=== PATIENT | female | born 1945 | race Caucasian/White ===

== ENCOUNTER 2017-02-01 09:26 | Observation (INO) | payer MEDICARE, OTHER ==
[2017-02-01 09:53] VITALS: BMI 40.8
[2017-02-01] MEDS ORDERED: Piperacillin/Tazobact 3.375 GM in Sodium Chloride 0.9% 100 ML IVPB STA (10:38)
[2017-02-01] MEDS ORDERED: Vancomycin 1 g Inj ONE (10:55)
[2017-02-01] MEDS ORDERED: Piperacillin/Tazobact 3.375 gm Inj IVPB ONE (10:59)
[2017-02-01 12:25] LABS: BASO # 0.1 K/uL (0.0-0.2); BASO % 0.9 % (0.0-2.0); EOS % 0.3 % (0.0-4.0); HEMOGLOBIN 10.9 g/dL (12.0-16.0); LYMPH % 10.8 % (20.0-40.0); MEAN CELL VOLUME 74.4 fl (81.0-99.0); MEAN CORPUSCULAR HEMOGLOBIN 22.5 pg (27.0-31.0); MEAN CORPUSCULAR HGB CONC 30.3 g/dL (33.0-37.0); MEAN PLATELET VOLUME 8.1 fl (7.2-11.7); MONO # 0.2 K/uL (0.0-0.8); MONO % 1.9 % (0.0-10.0); NEUT # 7.8 K/uL (1.8-7.0); NEUT % 86.1 % (50.0-75.0); RBC 4.82 Mil/uL (3.80-5.20); RED CELL DISTRIBUTION WIDTH 18.4 % (11.5-14.5)
[2017-02-01 12:26] LABS: VENOUS BLOOD GAS BASE EXCESS 4.2 mmol/L (0.0-2.0); VENOUS BLOOD GAS PCO2 55 mmHg (40-60); VENOUS BLOOD GAS PO2 29 mm/Hg (30-55); VENOUS BLOOD PH 7.36 (7.32-7.43)
--- NOTE | 2017-02-01 12:39 | US ---
PROCEDURE: Bilateral lower extremity venous duplex Doppler. HISTORY: BLE swelling COMPARISON: None available. TECHNIQUE: Bilateral common femoral, superficial femoral, popliteal and posterior tibial veins were evaluated. Flow was assessed with color Doppler, compressibility, assessment of phasic flow and augmentation response. FINDINGS: COMMON FEMORAL VEIN: Right CFV: Normal flow and spectral waveform. Left CFV: Normal flow and spectral waveform. SUPERFICIAL FEMORAL VEIN: Right SFV: Normal flow and spectral waveform. Left SFV: Normal flow and spectral waveform. POPLITEAL VEIN: Right Popliteal: Normal flow and spectral waveform. Left Popliteal: Normal flow and spectral waveform. POSTERIOR TIBIAL VEIN: Right PTV: Normal flow and spectral waveform. Left PTV: Normal flow and spectral waveform. OTHER FINDINGS: There is a complex cyst in the right popliteal fossa most compatible with a complex popliteal cyst. IMPRESSION: No evidence of deep venous thrombosis.
[2017-02-01 12:49] LABS: PARTIAL THROMBOPLASTIN TIME 45.2 Seconds (25.6-37.1); PROTHROMBIN TIME 36.3 Seconds (9.8-13.1)
--- NOTE | 2017-02-01 12:50 | CP.PCM.CON ---
<Zane Ferreira - Last Filed: 02/01/17 15:12> History of Present Illness - History of Present Illness History of Present Illness: 72 year old female with a PMH of HTN, fluid retention, asthma, and arthritis presents to the ED with worsening odor and drainage from her left wound. She states that she has had the ulceration for about 2 weeks. She was in the podiatry clinic last week, where silvadene was applied on the wound and UNNA boot applied to the lower left extremity. She is suppose to followup tomorrow. She states she did not have a learning operations specialist originally but saw a learning operations specialist for the first time last in podiatry clinic. She reports never having compression stockings. She states she has a PCP and saw him in November. She denies n/v/sob/cp/ chills or vomiting. PSH: b/l hip and knee replacement SH: denies smoking, drinking, or elicited drug use Allergies: fish -> rash Meds: see medication list FH: mother- of cancer, father heart disease Past Patient History - Past Medical History & Family History Past Medical History?: Yes - Past Social History Smoking Status: Never Smoked - CARDIAC Hx Hypertension: Yes - PULMONARY Hx Asthma: Yes Hx Pulmonary Embolism: Yes - MUSCULOSKELETAL/RHEUMATOLOGICAL Hx Arthritis: Yes - PSYCHIATRIC Hx Substance Use: No - SURGICAL HISTORY Hx Surgeries: Yes - ANESTHESIA Hx Anesthesia: Yes Meds Allergies/Adverse Reactions: Allergies Allergy/AdvReac Type Severity Reaction Status Date / Time FISH Allergy ITCHING Verified 02/01/17 09:53 iodine Allergy RASH Verified 02/01/17 09:54 Physical Exam - Constitutional Appears: Well, Non-toxic, No Acute Distress - Extremities Exam Additional comments: Vasc: DP amd PT 1/4 bilaterally, +2 pitting edema noted to bilaterally legs, temperature is warm to cool bilaterally, PEDIATRIC MEDICAL ASSISTANT <4 seconds Ortho: severe pain with palpation Neuro: gross sensation is diminished bilaterally Derm: anterior lateral ulceration of the left lower leg measures approximately 2.6 X 2 x.1, wound base is granular (40%) and fibrotic (60%) in nature and posterior lower leg ulceration measuring approximately 3 x 1x .1 with base 40% granular and 60% granular. Drainage is noted, clear yellow serous in color, no purulence, the wound is not hot, no increase temperature noted, periwound is erythematous, no tunneling, no undermining, no probe to bone, no malodor noted. - Neurological Exam Neurological exam: Alert, Oriented x3 - Psychiatric Exam Psychiatric exam: Normal Affect, Normal Mood Results - Labs Result Diagrams: 02/01/17 11:30 02/01/17 13:00 Labs: Laboratory Results - last 24 hr 02/01/17 02/01/17 11:30 12:20 WBC 9.0 RBC 4.82 Hgb 10.9 L Hct 35.9 MCV 74.4 L MCH 22.5 L MCHC 30.3 L RDW 18.4 H Plt Count 444 H D MPV 8.1 Neut % (Auto) 86.1 H Lymph % (Auto) 10.8 L [place] % (Auto) 1.9 Eos % (Auto) 0.3 Baso % (Auto) 0.9 Neut # 7.8 H Lymph # 1.0 [place] # 0.2 Eos # 0.0 Baso # 0.1 pO2 29 L VBG pH 7.36 VBG pCO2 55 VBG HCO3 27.0 VBG Total CO2 32.8 H VBG O2 Sat (Calc) 58.3 VBG Base Excess 4.2 H VBG Potassium 3.9 Sodium 138.0 Chloride 104.0 Glucose 155 H Lactate 3.0 H FiO2 21.0 Venous Blood Potassium 3.9 Assessment & Plan - Assessment and Plan (Free Text) Assessment: 72 year old female with a PMH of HTN, fluid retention, asthma, and arthritis presents to the ED with left lower extremity wounds secondary to lymphedema. Plan: Patient was examined and evaluated in the ED Chart, labs, and vitals reviewed (afebrile and WBC=9.0) Discussed the plan in detail with attending Dr. Salcido U/S-negative DVT Ulcerations does not appear clinically infected. Ulcerations were cleansed with saline solution. Silvadene and saline w2d dressing was applied. Compression dressing was applied using kerlix, cast padding, DARIUSZ, and Coban. Patient to followup in wound care clinic for wounds Patient to followup with PCP for management of fluid retention, lymphedema Advised patient to talk antibiotics until completion. Recommend ED for PO abx Cipro. Instructed to elevated. Patient to followup with podiatry clinic tomorrow as scheduled Thank you for the consult <Tracy Linder - Last Filed: 02/01/17 15:54> Meds - Medications Medications: Current Medications Silver Sulfadiazine (Silvadene 1% 20 Gm) 0 ea TOP DAILY LUPIS Last Admin: 02/01/17 15:30 Dose: 1 applic Results - Labs Result Diagrams: 02/01/17 11:30 02/01/17 13:00 Labs: Laboratory Results - last 24 hr 02/01/17 02/01/17 02/01/17 12:20 13:00 15:39 pO2 29 L 22 L VBG pH 7.36 7.38 VBG pCO2 55 51 VBG HCO3 27.0 26.5 VBG Total CO2 32.8 H 31.8 H VBG O2 Sat (Calc) 58.3 38.2 L VBG Base Excess 4.2 H 4.0 H VBG Potassium 3.9 4.4 Sodium 138.0 140 141.0 Chloride 104.0 104 105.0 Glucose 155 H Lactate 3.0 H 2.1 FiO2 21.0 21.0 Potassium 4.3 Carbon Dioxide 28 Anion Gap 13 BUN 17 Creatinine 0.7 Est GFR ( Amer) > 60 Est GFR (Non-Af Amer) > 60 Random Glucose 152 H Calcium 10.9 H Total Bilirubin 0.4 AST 26 ALT 22 Alkaline Phosphatase 84 Total Protein 7.4 Albumin 3.8 Globulin 3.5 Albumin/Globulin Ratio 1.1 Venous Blood Potassium 3.9 4.4 ED OBSERVATION Date of observation admission: 02/01/17 Time of observation admission: 12:00 - Observation admission statement Patient is being placed in observation because:: Need for serial examinations to determine stability for disposition - Goals of Observation Goals of observation are:: Resolution of symptoms - Progress Note Progress Note: 02/01/17 15:49 Patient is awake, vitals are stable and symptoms are improved
[2017-02-01 13:20] LABS: INR 3.4 (0.9-1.2)
[2017-02-01] MEDS ORDERED: Silver Sulfadiazine 1% Cream (20 gm) TOP SCH (13:30)
[2017-02-01] MEDS ORDERED: Silver Sulfadiazine 1% CREAM (50 gm) ONE (13:37)
[2017-02-01 13:39] LABS: ALB/GLOB RATIO 1.1 (1.0-2.1); ALBUMIN 3.8 g/dL (3.5-5.0); ALT/SGPT 22 U/L (9-52); AST/SGOT 26 U/L (14-36); BLOOD UREA NITROGEN 17 mg/dl (7-17); CALCIUM 10.9 mg/dL (8.4-10.2); GFR AFRICAN-AMERICAN > 60; GFR NON-AFRICAN AMERICAN > 60
[2017-02-01 15:41] LABS: VENOUS BLOOD GAS PCO2 51 mmHg (40-60); VENOUS BLOOD GAS PO2 22 mm/Hg (30-55); VENOUS BLOOD PH 7.38 (7.32-7.43)
[2017-02-01 16:46] VITALS: RESP 18
--- NOTE | 2017-02-01 17:13 | ED PDOC ---
Lower Extremity Pain/Injury Time Seen by Provider: 02/01/17 10:09 Chief Complaint (Nursing): Lower Extremity Problem/Injury Chief Complaint (Provider): Lower Extremity Problem/Injury History Per: Patient History/Exam Limitations: no limitations Onset/Duration Of Symptoms: Days (x1 week) Current Symptoms Are (Timing): Still Present Additional Complaint(s): Clarence Banegas is a 72 year old female with previous medical history of chronic bilateral pedal edema, who presents to the emergency department with a complaint of left lower leg pain from wound associated with drainage ongoing for 1 week since she saw a supervisor advice in clinic last week. Denied any fever or chills. PMD: Alex Nickerson MD Past Medical History Reviewed: Historical Data, Nursing Documentation, Vital Signs Vital Signs: Last Vital Signs Temp 97 F L 02/01/17 09:55 Pulse 102 H 02/01/17 09:55 Resp 18 02/01/17 09:55 BP 145/79 02/01/17 09:55 Pulse Ox 98 02/01/17 09:55 - Medical History PMH: Arthritis, Asthma, Back Problems, HTN, Pulmonary Embolism - Surgical History Surgical History: Denies: Back Surgery - Family History Family History: States: Unknown Family Hx - Social History Current smoker - smoking cessation education provided: No Alcohol: None Drugs: Denies - Immunization History Hx Influenza Vaccination: Yes Hx Pneumococcal Vaccination: Yes - Home Medications Home Medications: Ambulatory Orders Medication Instructions Recorded Warfarin [Coumadin] 3 mg PO DAILY 01/19/13 Albuterol Sulfate [Ventolin Hfa] 1 puff IH DAILY 01/24/15 Furosemide [Lasix] 40 mg PO DAILY 01/24/15 Lisinopril 20 mg PO DAILY 01/24/15 Metoprolol Succinate [Toprol XL] 25 mg PO DAILY 01/24/15 Montelukast [Singulair] 10 mg PO DAILY 01/24/15 Pantoprazole [Protonix EC Tab] 40 mg PO DAILY 01/24/15 Ibuprofen [Motrin Tab] 600 mg PO Q8 PRN #0 tab 01/25/15 Cephalexin [cephalexin] 500 mg PO QID #28 cap 02/01/17 - Allergies Allergies/Adverse Reactions: Allergies Allergy/AdvReac Type Severity Reaction Status Date / Time FISH Allergy ITCHING Verified 02/01/17 09:53 iodine Allergy RASH Verified 02/01/17 09:54 Review of Systems ROS Statement: Except As Marked, All Systems Reviewed And Found Negative Constitutional: Negative for: Fever, Chills Musculoskeletal: Positive for: Leg Pain (left lower region), Other (drainage of left lower leg wound) Physical Exam - Reviewed Nursing Documentation Reviewed: Yes Vital Signs Reviewed: Yes - Physical Exam Appears: Positive for: Well, Non-toxic, No Acute Distress Head Exam: Positive for: ATRAUMATIC, NORMAL INSPECTION, NORMOCEPHALIC Cardiovascular/Chest: Positive for: Regular Rate, Rhythm Respiratory: Positive for: Normal Breath Sounds. Negative for: Respiratory Distress Extremity: Positive for: Normal ROM, Tenderness (left lower leg), Pedal Edema ( pitting bilaterally), Deformity (Left leg bandage in place. Wound: 2 1/2cm ulceration lateral proximal to lateral malleolus with thin yellow drainage). Negative for: Other (vesicles or active bleeding) Neurologic/Psych: Positive for: Alert, craft superintendent II-XII, Oriented - Laboratory Results Result Diagrams: 02/01/17 11:30 02/01/17 13:00 - ECG O2 Sat by Pulse Oximetry: 98 (RA) Pulse Ox Interpretation: Normal Medical Decision Making Medical Decision Making: Initial Impression: Lower extremity pain Initial Plan: * VBG shock panel * Silvadene 1% 20gm * Vancomycin 1gm IV * Zosyn 100ml IVPB * Blood culture Time: 1240 --Podiatry consult: DVT workup. Patient to be admitted to hospital. Clinical Impression: Cellulites Ulceration Scribe Attestation: Documented by Kala Guardado, acting as a scribe for Tracy Linder MD. Provider Scribe Attestation: All medical record entries made by the Scribe were at my direction and personally dictated by me. I have reviewed the chart and agree that the record accurately reflects my personal performance of the history, physical exam, medical decision making, and the department course for this patient. I have also personally directed, reviewed, and agree with the discharge instructions and disposition. Disposition - Clinical Impression Clinical Impression: Cellulitis - Disposition Condition: STABLE
[2017-02-01 17:27] VITALS: BP 137/78; PULSE 78; TEMP 98.2
[2017-02-01 17:46] VITALS: O2SAT 98
== END 2017-02-01 17:15 | disposition home or self-care (01) ==
LOC: H.ER 09:26 → H.EROBSV 12:00
PROVIDERS: ADMIT Emergency Medicine; ATTEND Emergency Medicine
DX: L03.116 Cellulitis of left lower limb (principal); J45.909 Unspecified asthma, uncomplicated; I89.0 Lymphedema, not elsewhere classified; I10 Essential (primary) hypertension; R60.0 Localized edema; M19.90 Unspecified osteoarthritis, unspecified site; Z86.711 Personal history of pulmonary embolism; Z79.01 Long term (current) use of anticoagulants; Z79.899 Other long term (current) drug therapy; L97.329 Non-pressure chronic ulcer of left ankle with unspecified severity
CPT/HCPCS: 80053; 82803; 85025; 85610; 85730; 87040; 93970; 96365; G0378; J2543

== ENCOUNTER 2018-03-09 02:07 | Emergency (ER) | payer MEDICARE, OTHER ==
[2018-03-09 02:08] VITALS: BMI 40.8
--- NOTE | 2018-03-09 02:42 | ED PDOC ---
HPI: General Adult Time Seen by Provider: 03/09/18 02:16 Chief Complaint (Nursing): Abnormal Skin Integrity Chief Complaint (Provider): Bleeding History Per: Patient History/Exam Limitations: no limitations Onset/Duration Of Symptoms: Hrs Additional History Per: Patient Additional Complaint(s): 73yo female, history of CHF, hypertension, a-fib, DVT and currently on coumadin, comes to ER for evaluation of bleeding from a lesion on the left side of her face. Patient states she had the lesion x 3 years but over the last week , it has enlarged and tonight it "popped." She states the bleeding has spontaneously subsided and she denies any pain or discomfort. Patient also denies any other associated bleeding. PMD: Prashant Medina Past Medical History Reviewed: Historical Data, Nursing Documentation, Vital Signs Vital Signs: Last Vital Signs Temp 98.9 F 03/09/18 02:19 Pulse 120 H 03/09/18 02:19 Resp 17 03/09/18 02:19 BP 136/84 03/09/18 02:19 Pulse Ox 97 03/09/18 02:51 - Medical History PMH: Arthritis, Asthma, Back Problems, HTN, Pulmonary Embolism - Surgical History Surgical History: Denies: Back Surgery - Family History Family History: States: Unknown Family Hx - Immunization History Hx Influenza Vaccination: Yes Hx Pneumococcal Vaccination: Yes - Home Medications Home Medications: Ambulatory Orders Medication Instructions Recorded Warfarin [Coumadin] 3 mg PO DAILY 01/19/13 Albuterol Sulfate [Ventolin Hfa] 1 puff IH DAILY 01/24/15 Furosemide [Lasix] 40 mg PO DAILY 01/24/15 Lisinopril 20 mg PO DAILY 01/24/15 Metoprolol Succinate XL [Toprol XL] 25 mg PO DAILY 01/24/15 Montelukast [Singulair] 10 mg PO DAILY 01/24/15 Pantoprazole [Protonix EC Tab] 40 mg PO DAILY 01/24/15 Ibuprofen [Motrin Tab] 600 mg PO Q8 PRN #0 tab 01/25/15 Cephalexin [cephalexin] 500 mg PO QID #28 cap 02/01/17 - Allergies Allergies/Adverse Reactions: Allergies Allergy/AdvReac Type Severity Reaction Status Date / Time FISH Allergy ITCHING Verified 02/01/17 09:53 iodine Allergy RASH Verified 02/01/17 09:54 Review of Systems ROS Statement: Except As Marked, All Systems Reviewed And Found Negative ENT: Positive for: Other (bleeding from lesion on left cheek, now resolved) Respiratory: Negative for: Hemoptysis Gastrointestinal: Negative for: Melena, Hematochezia, Hematemesis Genitourinary Female: Negative for: Hematuria Physical Exam - Reviewed Nursing Documentation Reviewed: Yes Vital Signs Reviewed: Yes - Physical Exam Appears: Positive for: Non-toxic, No Acute Distress Head Exam: Positive for: ATRAUMATIC, NORMAL INSPECTION, NORMOCEPHALIC Skin: Positive for: Normal Color, Warm. Negative for: Pallor Eye Exam: Positive for: Normal appearance, EOMI, PERRL ENT: Positive for: Normal ENT Inspection. Negative for: Other (epistaxis) Neck: Positive for: Normal, Supple Cardiovascular/Chest: Positive for: Regular Rate, Rhythm Respiratory: Positive for: Normal Breath Sounds Pulses-Radial (L): 2+ Pulses-Radial (R): 2+ Gastrointestinal/Abdominal: Positive for: Normal Exam, Soft Back: Positive for: Normal Inspection Extremity: Positive for: Normal ROM. Negative for: Pedal Edema Neurologic/Psych: Positive for: Alert, Oriented. Negative for: Motor/Sensory Deficits - Laboratory Results Result Diagrams: 03/09/18 02:48 03/09/18 02:48 - ECG O2 Sat by Pulse Oximetry: 97 (RA) Pulse Ox Interpretation: Normal Medical Decision Making Medical Decision Making: Impression: 73yo female with episode of bleeding, in setting of known anticoagulant use Plan: * BMP * CBC * PT/PTT Time: 0317 Labs reviewed and show no clinically significant abnormalities. Patient remained stable in ER with no new episodes of bleeding. Surgicel dressing applied to wound site; patient stable for discharge home. Scribe Attestation: Documented by Vesta Carrillo, acting as a scribe for Dewayne Orellana MD. Provider Scribe Attestation: All medical record entries made by the Scribe were at my direction and personally dictated by me. I have reviewed the chart and agree that the record accurately reflects my personal performance of the history, physical exam, medical decision making, and the department course for this patient. I have also personally directed, reviewed, and agree with the discharge instructions and disposition. Disposition - Clinical Impression Clinical Impression: Hemorrhage of skin lesion - Disposition Referrals: Gage Wilson MD [Primary Care Provider] - Disposition: Routine/Home Disposition Time: 03:18 Condition: STABLE Instructions: Going Home on Blood Thinners Forms: [facility] (Persian)
[2018-03-09 03:00] LABS: BASO # 0.1 K/uL (0.0-0.2); BASO % 0.6 % (0.0-2.0); EOS # 0.2 K/uL (0.0-0.7); EOS % 1.7 % (0.0-4.0); HEMOGLOBIN 13.4 g/dL (12.0-16.0); LYMPH # 1.6 K/uL (1.0-4.3); LYMPH % 17.8 % (20.0-40.0); MEAN CORPUSCULAR HEMOGLOBIN 28.5 pg (27.0-31.0); MEAN CORPUSCULAR HGB CONC 33.1 g/dL (33.0-37.0); MEAN PLATELET VOLUME 7.7 fl (7.2-11.7); MONO # 0.6 K/uL (0.0-0.8); MONO % 6.4 % (0.0-10.0); NEUT # 6.8 K/uL (1.8-7.0); NEUT % 73.5 % (50.0-75.0); NRBC % 0.1 % (0.0-0.0); RBC 4.71 Mil/uL (3.80-5.20); RED CELL DISTRIBUTION WIDTH 16.1 % (11.5-14.5); WHITE BLOOD COUNT 9.2 K/uL (4.8-10.8)
[2018-03-09 03:01] LABS: INR 1.8; PROTHROMBIN TIME 19.8 Seconds (9.8-13.1)
[2018-03-09 03:03] LABS: PARTIAL THROMBOPLASTIN TIME 37.1 Seconds (25.6-37.1)
[2018-03-09 03:05] LABS: BLOOD UREA NITROGEN 13 mg/dl (7-17); CALCIUM 11.2 mg/dL (8.4-10.2); GFR NON-AFRICAN AMERICAN > 60
[2018-03-09] MEDS ORDERED: Absorbable Gelatin Sponge Size 12-7 ONE (03:18)
[2018-03-09 04:06] VITALS: BP 128/80; PULSE 101; RESP 18; TEMP 98.4; O2SAT 99
== END 2018-03-09 03:40 | disposition home or self-care (01) ==
LOC: H.ER 02:07
DX: L98.9 Disorder of the skin and subcutaneous tissue, unspecified (principal); I11.0 Hypertensive heart disease with heart failure; Z79.01 Long term (current) use of anticoagulants; Z86.711 Personal history of pulmonary embolism

== ENCOUNTER 2018-03-16 20:06 | Emergency (ER) | payer MEDICARE, OTHER ==
[2018-03-16 20:06] VITALS: BMI 40.8
[2018-03-16 20:13] VITALS: RESP 16; TEMP 97.8
[2018-03-16] MEDS ORDERED: Albuterol-Ipratrop 3 mg / 0.5 (3 ml) UD INH STA (20:52)
--- NOTE | 2018-03-16 20:56 | ED PDOC ---
HPI: General Adult Time Seen by Provider: 03/16/18 20:39 Chief Complaint (Nursing): Abnormal Skin Integrity Chief Complaint (Provider): BLEEDING SKIN LESION History Per: Patient (73 Y/O FEMALE H/O AFIB ON COUMADIN/CHF/ASTHMA HERE WITH COMPLAINT OF UNPROVOKED BLEEDING NOTED TODAY. HAS BEEN COUGHING X 3 WEEKS INCREASED AND HAS RECENTLY COMPLETED Z PACK. WAS SEEN YESTERDAY FOR SIMILAR BLEEDING AND HAD GELFOAM APPLIED. HAS HAD CT OF LESION AND IS PENDING F/U WITH SPECIALIST AT [facility].) Past Medical History Reviewed: Historical Data, Nursing Documentation, Vital Signs Vital Signs: Last Vital Signs Temp 97.8 F 03/16/18 20:08 Pulse 114 H 03/16/18 20:08 Resp 16 03/16/18 20:08 BP 147/84 03/16/18 20:08 Pulse Ox 95 03/16/18 20:08 - Medical History PMH: Arthritis, Asthma, Back Problems, HTN, Pulmonary Embolism - Surgical History Surgical History: Denies: Back Surgery - Family History Family History: States: Unknown Family Hx - Immunization History Hx Influenza Vaccination: Yes Hx Pneumococcal Vaccination: Yes - Home Medications Home Medications: Ambulatory Orders Medication Instructions Recorded RX: Warfarin [Coumadin] 3 mg PO DAILY 01/19/13 RX: Albuterol Sulfate [Ventolin 1 puff IH DAILY 01/24/15 Hfa] RX: Furosemide [Lasix] 40 mg PO DAILY 01/24/15 RX: Lisinopril 20 mg PO DAILY 01/24/15 RX: Metoprolol Succinate XL 25 mg PO DAILY 01/24/15 [Toprol XL] RX: Montelukast [Singulair] 10 mg PO DAILY 01/24/15 RX: Pantoprazole [Protonix EC Tab] 40 mg PO DAILY 01/24/15 RX: Ibuprofen [Motrin Tab] 600 mg PO Q8 PRN #0 tab 01/25/15 Cephalexin [cephalexin] 500 mg PO QID #28 cap 02/01/17 RX: predniSONE [predniSONE Tab] 2 tab PO DAILY #8 tab 03/16/18 - Allergies Allergies/Adverse Reactions: Allergies Allergy/AdvReac Type Severity Reaction Status Date / Time FISH Allergy ITCHING Verified 02/01/17 09:53 iodine Allergy RASH Verified 02/01/17 09:54 Review of Systems ROS Statement: Except As Marked, All Systems Reviewed And Found Negative Physical Exam - Reviewed Nursing Documentation Reviewed: Yes Vital Signs Reviewed: Yes - Physical Exam Appears: Positive for: Well, Non-toxic, No Acute Distress Head Exam: Positive for: ATRAUMATIC, NORMAL INSPECTION, NORMOCEPHALIC Skin: Positive for: Warm. Negative for: Normal Color (2 CM REGION OF VASCULARITY NOTED LEFT SIDE OF FACE. NO ACTIVE BLEEDING AT THIS TIME. CLOT NOTED AT REGION OF PRIOR BLEEDING.) Eye Exam: Positive for: EOMI, Normal appearance, PERRL ENT: Positive for: Normal ENT Inspection Neck: Positive for: Normal, Painless ROM Cardiovascular/Chest: Positive for: Regular Rate, Rhythm Respiratory: Positive for: Normal Breath Sounds, Wheezing Gastrointestinal/Abdominal: Positive for: Normal Exam, Soft Back: Positive for: Normal Inspection Extremity: Positive for: Normal ROM Neurologic/Psych: Positive for: Alert, Oriented - Laboratory Results Result Diagrams: 03/16/18 21:10 - ECG O2 Sat by Pulse Oximetry: 95 - Progress ED Course And Treament: DUONEB X 1 DOSE PREDNISONE 40 MG X 1 DOSE CXR: NAD RE-EXAMINED WITH LUNGS CTAB/ PATIENT FEELS IMPROVED. GELFOAM APPLIED TO WOUND. PATIENT TO F/U WITH PMD TOMORROW TO REVIEW/ DISCUSS INR OF 1.7 Disposition - Clinical Impression Clinical Impression: Hemorrhage of skin lesion, Bronchitis - Patient ED Disposition Is Patient to be Admitted: No - Disposition Disposition: Routine/Home Disposition Time: 22:25 Condition: FAIR Prescriptions: RX: predniSONE [predniSONE Tab] 2 tab PO DAILY #8 tab Instructions: Wound Care (DC), Acute Bronchitis Print Language: VIETNAMESE
[2018-03-16 21:20] LABS: BASO % 0.3 % (0.0-2.0); EOS % 0.2 % (0.0-4.0); HEMOGLOBIN 14.1 g/dL (12.0-16.0); LYMPH # 1.3 K/uL (1.0-4.3); LYMPH % 16.7 % (20.0-40.0); MEAN CELL VOLUME 86.8 fl (81.0-99.0); MEAN CORPUSCULAR HEMOGLOBIN 28.5 pg (27.0-31.0); MEAN CORPUSCULAR HGB CONC 32.8 g/dL (33.0-37.0); MEAN PLATELET VOLUME 8.1 fl (7.2-11.7); MONO # 0.4 K/uL (0.0-0.8); MONO % 5.3 % (0.0-10.0); NEUT % 77.5 % (50.0-75.0); NRBC % 0.3 % (0.0-0.0); RBC 4.95 Mil/uL (3.80-5.20); RED CELL DISTRIBUTION WIDTH 16.4 % (11.5-14.5); WHITE BLOOD COUNT 7.8 K/uL (4.8-10.8)
[2018-03-16] MEDS ORDERED: Albuterol-Ipratrop 3 mg / 0.5 (3 ml) UD ONE (21:23)
[2018-03-16 21:30] LABS: INR 1.7; PROTHROMBIN TIME 19.4 Seconds (9.8-13.1)
[2018-03-16 21:33] LABS: PARTIAL THROMBOPLASTIN TIME 33.6 Seconds (25.6-37.1)
[2018-03-16] MEDS ORDERED: Absorbable Gelatin Sponge Size 12-7 TP ONE (22:08)
[2018-03-16] MEDS ORDERED: Absorbable Gelatin Sponge Size 12-7 ONE (22:23)
[2018-03-16 22:52] VITALS: BP 150/72; PULSE 99
[2018-03-17 03:05] VITALS: O2SAT 95
--- NOTE | 2018-03-17 11:18 | RAD ---
Date of service: 03/16/2018 HISTORY: COUGH COMPARISON: Chest radiograph dated 01/24/2015 FINDINGS: LUNGS: No active pulmonary disease. PLEURA: No significant pleural effusion identified, no pneumothorax apparent. CARDIOVASCULAR: Atherosclerotic aortic calcifications. Cardiomediastinal silhouette stably enlarged. OSSEOUS STRUCTURES: Unchanged. VISUALIZED UPPER ABDOMEN: Normal. OTHER FINDINGS: None. IMPRESSION: No active disease.
== END 2018-03-16 22:53 | disposition home or self-care (01) ==
LOC: H.ER 20:06
DX: L98.9 Disorder of the skin and subcutaneous tissue, unspecified (principal); R21 Rash and other nonspecific skin eruption; J40 Bronchitis, not specified as acute or chronic